=== PATIENT | female | born 1990 | race Caucasian/White ===

== ENCOUNTER 2017-09-22 09:06 | Emergency (ER) | payer OTHER ==
[2017-09-22 09:27] VITALS: BP 115/63
--- NOTE | 2017-09-25 06:58 | UC ---
Throat Pain/Nasal Bobo HPI - HPI Summary HPI Summary: 27 year old female presents with sore throat. - History of Current Complaint Chief Complaint: UCGeneralIllness Stated Complaint: SORE THROAT,FEVER Time Seen by Provider: 09/22/17 09:21 Hx Obtained From: Patient Hx Last Menstrual Period: ~09/15/17 Onset/Duration: Sudden Onset Severity: Moderate Pain Intensity: 6 Pain Scale Used: 0-10 Numeric - Allergies/Home Medications Allergies/Adverse Reactions: Allergies Allergy/AdvReac Type Severity Reaction Status Date / Time Penicillins Allergy Mild swelling Verified 09/22/17 09:23 Bee Venom Allergy Swelling Verified 09/22/17 09:23 micropore tape Allergy Mild Rash Uncoded 09/22/17 09:23 Home Medications: Home Medications Etonogestrel [Nexplanon] 68 mg IMPLANT ONCE 09/22/17 [History Confirmed 09/22/17 ] Venlafaxine EXT RELEASE CAP* [Effexor Xr CAP*] 75 mg PO DAILY 09/22/17 [History Confirmed 09/22/17] PMH/Surg Hx/FS Hx/Imm Hx Previously Healthy: Yes - Surgical History Surgical History: Yes Surgery Procedure, Year, and Place: T&A, ~1996, [facility] [place] - Family History Known Family History: Positive: None, Cardiac Disease, Hypertension, Diabetes Negative: Blood Disorder, Other - EAR INFECTIONS - Social History Alcohol Use: Occasionally Alcohol Amount: once a month - 2-3 drinks Substance Use Type: None Smoking Status (MU): Never Smoked Tobacco - Immunization History Most Recent Influenza Vaccination: September 2017 Most Recent Tetanus Shot: up to date Review of Systems Constitutional: Negative Skin: Negative Eyes: Negative ENT: Sore Throat, Sinus Congestion, Sinus Pain/Tenderness Respiratory: Negative Cardiovascular: Negative Gastrointestinal: Negative Genitourinary: Negative Motor: Negative Neurovascular: Negative Musculoskeletal: Negative, Other: Neurological: Negative Psychological: Negative All Other Systems Reviewed And Are Negative: Yes Physical Exam Triage Information Reviewed: Yes Vital Signs: Initial Vital Signs Temp 37.5 C 09/22/17 09:21 Pulse 110 09/22/17 09:21 Resp 16 09/22/17 09:21 BP 115/63 09/22/17 09:21 Pulse Ox 100 09/22/17 09:21 Vital Signs Reviewed: Yes Eye Exam: Normal ENT: Positive: Pharyngeal erythema, Nasal congestion, Nasal drainage, Tonsillar swelling Dental Exam: Normal Neck exam: Normal Neck: Positive: 1 Respiratory Exam: Normal Cardiovascular Exam: Normal Abdominal Exam: Normal Musculoskeletal Exam: Normal Neurological Exam: Normal Psychological Exam: Normal Skin Exam: Normal Throat Pain/Nasal Course/Dx - Differential Dx/Diagnosis Provider Diagnoses: pharyngitis Discharge - Discharge Plan Condition: Stable Disposition: HOME Prescriptions: Azithromyxin SEVEN (NF) [Z-Seven (Zithromax) 250 mg tabs #6] 2 tab PO .TODAY, THEN 1 DAILY #6 tab LoraTADine TAB(NF) [Claritin 10 MG TAB(NF)] 10 mg PO DAILY #30 tab Magic M W2 Rey/Maal/Nyst/Lido* 5 ml SWISH SPIT QID PRN #120 ml PRN Reason: Pain Patient Education Materials: Pharyngitis (ED) Referrals: See Paez MD [Primary Care Provider] -
== END 2017-09-22 09:56 | disposition home or self-care (01) ==
LOC: UCCORT 09:06
DX: J02.9 Acute pharyngitis, unspecified (principal)
CPT/HCPCS: 87651; 99212; G0463

== ENCOUNTER 2018-04-16 16:31 | Emergency (ER) | payer OTHER ==
--- OUTSIDE RECORDS SUMMARY | 2018-04-16 16:37 | XMS REPORT ---
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 General Asthma Half-brother has asthma General Colon Cancer Paternal had colon cancer in senior years General Lung Cancer Paternal grandfather had lung cancer that caused . General Hypertension Father has hypertension General Mental Illness Maternal aunt is paranoid schizo General Obesity Father has obesity General Stroke Paternal grandmother had stroke General Alzheimer's Disease Paternal grandmother had dementia General Anemia Mother and Maternal Aunt anemic with General Stomach Cancer Paternal grandmother had stomach cancer at end of life. General Chickenpox All immediate family members have had chicken pox. General Cirrhosis Paternal grandfather had cirrhosis General Emphysema Paternal grandfather had General Vertigo Father suffers from vertigo occasionally General Diabetes Father and paternal uncle (father's twin) have diabetes. Paternal grandmother had diabetes late in life. Maternal grandmother is pre-diabetic. 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 Blood Donor Patient is not a blood donor Cigars Never Smoked Cigars ETOH Use 03/15/2018 Occasionally consumes alcohol Smoking 03/15/2018 Patient has never smoked Recreational Drug Use 03/15/2018 Negative For Never Used Drugs Allergies, Adverse Reactions, Alerts Date Description Reaction Status Severity Comments 03/14/2018 Penicillin Swelling of mouth active 03/14/2018 Bee Sting Severe swelling active 03/14/2018 Tape Contact dermatitis, Surgical Tape active Medications Medication Date Status Form Strength Qnty SIG Indications Ordering Provider Nexplanon / Active Implant 68mg Implant Pastor, 0000 JOHNNY Mason Ibuprofen / Active Tablets 800mg As needed Unknown 0000 Multivitamins / Active Capsules 1 a day Unknown Omeprazole 03/15/ Hx Capsules 20mg 30caps 1 by Ramses 2017 - DR fany Weston, 04/06/ every M.D. 2017 day. Venlafaxine HCL / Hx Tablets 75mg Daily Carolyne, 0000 - MD Gwen 2017 Vital Signs Date Vital Result Comment 04/12/2018 Weight 218.00 lb Height 66 inches 5'6" BMI (Body Mass Index) 35.2 kg/m2 BP Systolic 114 mmHg BP Diastolic 72 mmHg Heart Rate 108 /min O2 % BldC Oximetry 98 % Body Temperature 97.3 F Pain Level 0 03/15/2018 Weight 218.12 lb Height 66 inches 5'6" BMI (Body Mass Index) 35.2 kg/m2 BP Systolic 107 mmHg BP Diastolic 75 mmHg Heart Rate 81 /min O2 % BldC Oximetry 99 % room air Body Temperature 99.0 F Cordova Score 15 Neck Circumference in inches 14 Pain Level 0 Results Description No Information Procedures Date CPT Code Description Status 03/15/2018 39851 Fiberoptic Laryngoscopy,Diag. Completed Encounters Type Date Location Provider CPT E/M Dx Office Visit 03/15/2018 3:30p [place] [address] R06.83 G47.9 K21.9 Plan of Care 03/15/2018 - Genet Leiva, NPR06.83 [id number] Sleep disorder, [id number] Gastro-esophageal reflux disease without esophagitisNew Orders: PSG - Sleep StudyNew Orders:PSG - Sleep StudyNew Medication:Omeprazole 20 mg
--- OUTSIDE RECORDS SUMMARY | 2018-04-16 16:37 | XMS REPORT ---
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 See Paez MD Primary Care Physician Unavailable Payers Type Date Identification Numbers Payment Provider Subscriber Commercial Policy Number: [id number] Darinel Reid PayID: [id number] [address] [place] [address] Problems Description No Information Family History Date [...] Boyfriend Sleep Reports continuity disturbances 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 Nexplanon / Active Implant 68mg Implant Pastor, 0000 JOHNNY Mason Ibuprofen / Active Tablets 800mg As needed Unknown 0000 Multivitamins / Active Capsules 1 a day Unknown 0000 Omeprazole 03/15/ Hx Capsules 20mg 30caps 1 by Ramses, 2017 - DR fany Weston, 04/06/ every M.D. 2018 day. Venlafaxine HCL / Hx Tablets 75mg [...] % room air Body Temperature 99.0 F [place] Score 15 Neck Circumference in inches 14 Pain Level 0 Results Description No Information Procedures Date CPT Code Description Status 03/15/2018 86105 Fiberoptic Laryngoscopy,Diag. Completed Encounters Type Date Location Provider CPT E/M Dx Office Visit 04/12/2018 9:00a [place] [address] R06.83 K21.9 Office Visit 03/15/2018 3:30p Main Office Genet Leiva, LEXI 73747 R06.83 G47.9 K21.9 Plan of Care 03/15/2018 - Genet Leiva, NPR06.83 [id number] Sleep disorder, mrririlbzcyD97.9 Gastro-esophageal reflux disease without esophagitisNew Orders: PSG - Sleep StudyNew Orders:PSG - Sleep StudyNew Medication:Omeprazole 20 mg
[2018-04-16 18:03] VITALS: BP 129/73
[2018-04-16] MEDS ORDERED: Acetaminophen TAB* 325 MG PO ONE (18:45)
--- NOTE | 2018-04-16 19:01 | UC ---
Neha Sims Tenzin, scribed for Tamia Murillo MD on 04/16/18 at 1848 . Head Injury HPI - HPI Summary HPI Summary: Pt is a 28 years old female with a history of concussion presenting to the complaining of headache from head injury that happened last night around 20:00. She was packing last night when accidentally a heavy lamp fell on the top of her head. During the onset, she reported that she had an instant GONZALEZ but today it is worse and it is radiating to the other parts of her head. She rates the pain currently at 5/10 in severity. Pt is also complaining of feeling nauseous and foggy this morning. Denies seeing any blood from nose or eyes and no vision changes. No LOC. Pt with h/oo concussions. Last recent concussion history was in October of 2015 with months long symptoms. pt states she has been followed by neurology, [place] for he concussions. She was recenlt treated with Effexor by weaned off last week. Pt states since she has had some dizziness and nausea from withdrawal. Pt unsure if sx today from head injury or withdrawal Pt states spoke to neurology who told could be either. She decided to come get checked out. Pt works for [employer] and reports had a stressful day that may have contributed to her symptoms. pt deniea vision changes. No paresthesias ext x 4. She took a 800 mg ibuprofen and caffeine but it didn't help to relieve her pain. Pt states she is moving into a new house she recently purchased Pt's medications reviewed this visit - History Of Current Complaint Chief Complaint: UCHeadInjury Stated Complaint: HEAD INJURY Time Seen by Provider: 04/16/18 18:31 Hx Obtained From: Patient Hx Last Menstrual Period: NEXPLANON (03/30/18) ?: No Onset/Duration: Sudden Onset, Still Present Severity Initially: Mild Pain Intensity: 5 Pain Scale Used: 0-10 Numeric Aggravating Factor(s): Nothing Alleviating Factor(s): Nothing Associated Signs And Symptoms: Positive: Other - Denies: vision changes, no blood from nose or eyes. - Allergies/Home Medications Allergies/Adverse Reactions: Allergies Allergy/AdvReac Type Severity Reaction Status Date / Time bee venom protein (honey bee) Allergy Severe Swelling Verified 04/16/18 18:04 Penicillins Allergy Severe Swelling Verified 04/16/18 18:04 micropore tape Allergy Mild Rash Uncoded 04/16/18 18:04 Home Medications: Home Medications Ibuprofen TAB* [Advil TAB*] 800 mg PO ONCE PRN 04/16/18 [History Confirmed 04/16] Multivitamin [Multivitamins] 1 each PO DAILY 04/16/18 [History Confirmed ] PMH/Surg Hx/FS Hx/Imm Hx - Additional Past Medical History Additional PMH: POSITIVE: ASTHMA, concussion NEGATIVE: [place], CVA. Previously Healthy: Yes - Surgical History Surgical History: Yes Surgery Procedure, Year, and Place: T&A, ~1996, [facility], [place] - Family History Known Family History: Positive: None, Cardiac Disease, Hypertension, Diabetes Negative: Blood Disorder, Other - EAR INFECTIONS - Social History Occupation: Employed Full-time Lives: With Family Alcohol Use: None Alcohol Amount: once a month - 2-3 drinks Substance Use Type: None Smoking Status (MU): Never Smoked Tobacco - Immunization History Most Recent Influenza Vaccination: September 2017 Most Recent Tetanus Shot: up to date Review of Systems Constitutional: Negative Skin: Negative Eyes: Negative ENT: Negative Respiratory: Negative Cardiovascular: Negative Gastrointestinal: Nausea, Other - foggy Genitourinary: Negative Motor: Negative Neurovascular: Negative Musculoskeletal: Negative Neurological: Headache Psychological: Negative All Other Systems Reviewed And Are Negative: Yes Physical Exam - Summary Physical Exam Summary: Vital Signs Reviewed: Yes A+Ox3, no distress Eyes: Conjunctiva Clear, MAYRA. EOM intact and full ENT: Hearing grossly normal TM x 2 clear, mmoist, uvula midline, no exudate, no erythema Neck: Positive: Supple Respiratory: Positive: No respiratory distress, No accessory muscle use + CTA throughout no w/r Cardiovascular: RRR nl s1, s2 no m/r CBT <2 sec abd soft + BS nt/nd no guarding, no distension Musculoskeletal Exam: RODRIGUEZ x 4 without difficulty Strength Intact, ROM Intact Psychological: Positive: Normal Response To Family Skin: Positive: no rash, no ecchymosis, no edema, no abraison CN 2-12 intact and full + FNF b/l + heel/boo b/l 5/5 abduction, flex/ext elbow, wrist against resistant 5/5 SLE, flex/ext knee, ankle + great toe extension + gross sensation throughout neg rhomberg + heel/toe walking + heel/toe rocking + naming Triage Information Reviewed: Yes Vital Signs: Initial Vital Signs Temp 97.8 F 04/16/18 17:58 Pulse 81 04/16/18 17:58 Resp 16 04/16/18 17:58 BP 129/73 04/16/18 17:58 Pulse Ox 100 04/16/18 17:58 Diagnostics - Radiology BRAIN CT Radiology Interpretation Completed By: Radiologist - IMPRESSION: NO EVIDENCE FOR ACUTE INTRACRANIAL ABNORMALITY. 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/Release Non-Paretic Hand: Both Correctly Best Gaze (Only Horizontal Eye Movement): Normal Visual Field Testing: No Visual Loss Facial Paresis-Pt to Smile & Close Eyes or Grimace Symmetry: Normal/Symmetrical Motor Function - Right Arm: No Drift-Holds 10 Seconds Motor Function - Left Arm: No Drift-Holds 10 Seconds Motor Function - Right Leg: No Drift-Holds 10 Seconds Motor Function - Left Leg: No Drift-Holds 10 Seconds Limb Ataxia-Must be out of Proportion to Weakness Present: Absent Sensory (Use Pinprick to Test Arms/Legs/Trunk/Face): Normal Best Language (Describe Picture, Name Items): No Aphasia Dysarthria (Read Several Words): Normal Extinction and Inattention: No Abnormality Total Score: 0 Head Injury Course/Dx - Course Course Of Treatment: Pt presents with headache and lightheadedness since yesterday. pt was stuck in head by a lamp which fell last night. no LOC. Pt with h/o concussion with post concussion syndrome from previous pt also has been weaning of medication causing some dizziess and nausea. Pt with non cocnerning, non focal exam. Will check CT. If neg, will discharge, work note, rest. eviewed concussion precautions. pt is followed by neurology for concussion. return precautions. pt in agreement with plan - Differential Dx/Diagnosis Provider Diagnoses: closed head injury Discharge - Sign-Out/Discharge Documenting (check all that apply): Discharge/Admit/Transfer - Discharge Plan Condition: Stable Disposition: HOME Patient Education Materials: Concussion (ED), Head Injury (ED) Forms: *Gen. Provider Communication Referrals: See Paez MD [Primary Care Provider] - Additional Instructions: - Stay well hydrated. Drink plenty of non-alcoholic, non-caffinated beverages - Okay to alternate ibuprofen (Advil, Motrin) and tylenol every 3 hours for pain. Take with food. Do NOT take for more than 4-5 days - eat regular, healthy meals - Get plenty of restful sleep contact your doctor to schedule a follow-up appointment. Contact your doctor or return with questions or concerns - Billing Disposition and Condition Condition: STABLE Disposition: Home The documentation as recorded by the Neha navarro Tenzin accurately reflects the service I personally performed and the decisions made by me, Tamia Murillo MD.
--- NOTE | 2018-04-16 19:25 | RAD ---
INDICATION: Head injury. COMPARISON: Comparison is made with a prior study from February 15, 2015. TECHNIQUE: Contiguous axial sections of the brain were obtained from the skull base to the vertex without contrast. FINDINGS: The ventricles, cisterns and sulci are within normal limits. No significant focal abnormality or mass effect is seen. There is no evidence for hemorrhage. No significant focal osseous abnormality is seen. The visualized portion of the paranasal sinuses and mastoid air cells appear clear. IMPRESSION: NO EVIDENCE FOR ACUTE INTRACRANIAL ABNORMALITY.
== END 2018-04-16 19:45 | disposition home or self-care (01) ==
LOC: UCEAST 16:31
DX: S09.90XA Unspecified injury of head, initial encounter (principal); W20.8XXA Other cause of strike by thrown, projected or falling object, initial encounter; Y93.E6 Activity, residential relocation; Y92.009 Unspecified place in unspecified non-institutional (private) residence as the place of occurrence of the external cause; J45.909 Unspecified asthma, uncomplicated; Z87.820 Personal history of traumatic brain injury; Z91.030 Bee allergy status; Z88.0 Allergy status to penicillin; Z91.048 Other nonmedicinal substance allergy status
CPT/HCPCS: 70450; 99212; A9270-GY; G0463

== ENCOUNTER 2018-04-30 10:30 | Emergency (ER) | payer OTHER ==
--- OUTSIDE RECORDS SUMMARY | 2018-04-30 11:05 | XMS REPORT ---
:1990 External Reference #:[id number] Author Organization [facility] Address [address] [place] [address] Phone [phone] Care Team Providers Name Role Phone See Paez MD Primary Care Physician Unavailable Payers Type Date Identification Numbers Payment Provider Subscriber Commercial Policy Number: [id number] [employer] Sarwat Reid PayID: [id number] [address] [place] [address] Workers Compensation Effective: Policy Number: Rosaura Edmonds 2015 [id number] Expires: 2017 PayID: [id number] [address] Onset: 2015 [place] [address] Problems Date Description Provider Status Onset: 08/08/2016 Migraine without aura, not refractory Gwen Barfield MD Active Onset: 11/23/2015 Postconcussion syndrome Gwen Barfield MD Active Family History Date Family Member(s) Problem(s) Comments General Diabetes General Arthritis General Colon Cancer General Stomach Cancer General Stroke General Heart Disease Father Hypertension Father Diabetes Siblings 1 Social History Type Date Description Comments Marital Status Single Lives With Mother And Father 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 Tobacco Never Used Smokeless Tobacco ETOH Use Occasionally consumes alcohol Smoking Patient has never smoked Recreational Drug Use Denies Drug Use Daily Caffeine Does Not Consume Caffeine Exercise Type/Frequency Exercises regularly Allergies, Adverse Reactions, Alerts Date Description Reaction Status Severity Comments 04/23/2014 Penicillin active Medications Medication Date Status Form Strength Qnty SIG Indications Ordering Provider Ibuprofen 10/07/ Active Tablets 800mg 90tab 1 po tid w Pedro M 2015 s food raman Alexander MD pain and swelling Ibuprofen / Active Capsules 200mg as needed Unknown 0000 Nexplanon / Active Implant 68mg Unknown 0000 Multi For Her / Active Capsules once a day Unknown 0000 otc Gabapentin / Active Capsules 300mg 1 by mouth Unknown 0000 three times a day Effexor XR 02/23/ Hx Caps ER 37.5mg 30cap take 1 in F07.81 Gwen 2018 - 24HR s the Am MD Carolyne with 1 2018 75mg cap for 1-2 wks then 75mg daily for 1- 2 wks then 1 cap (37.5mg) daily for 1- 2 wks then stop Effexor XR 12/26/ Hx Caps ER 75mg 60cap 2 by mouth F07.81 Gwen 2016 - 24HR s every day MD Carolyne 2017 Effexor XR 08/08/ Hx Caps ER 37.5mg 60cap 1 in the G43.009 Gwen 2015 - 24HR s morning MD Carolyne 12/26/ for 1 week 2016 then 2 in the morning Amitriptyline 11/23/ Hx Tablets 10mg 30tab take 1 F07.81 Gwen HCL 2016 - s tablet at MD Carolyne 05/30/ bedtime 2016 Lateral J Knee 04/23/ Hx Claudia Moreau, 11/22/ Manan 2016 Nuvaring / Hx Ring 0.12-0.015 3unit insert 1 Unknown 0000 - mg/24HR s ring 08/07/ vaginally 2015 every [address] for 3 weeks, remove, and replace with a new ring after 7 day break for b Tylenol / Hx Tablets 325mg as needed Unknown 0000 - 2015 Multivitamin / Hx Tablets 1 by mouth Unknown Adult 0000 - every day 2016 Vital Signs Date Vital Result Comment 04/25/2018 Height 66 inches 5'6" Weight 219.25 lb Heart Rate 70 /min BP Systolic 104 mmHg BP Diastolic 66 mmHg BMI (Body Mass Index) 35.4 kg/m2 02/23/2018 Height 66 inches 5'6" Weight 215.38 lb Heart Rate 72 /min BP Systolic 128 mmHg BP Diastolic 82 mmHg BMI (Body Mass Index) 34.8 kg/m2 08/25/2017 Height 66 inches 5'6" Weight 205.00 lb Heart Rate 60 /min BP Systolic 104 mmHg BP Diastolic 62 mmHg BMI (Body Mass Index) 33.1 kg/m2 12/26/2016 Height 66 inches 5'6" Weight 180.00 lb Heart Rate 77 /min BP Systolic Sitting 116 mmHg BP Diastolic Sitting 66 mmHg Respiratory Rate 16 /min BMI (Body Mass Index) 29.0 kg/m2 12/09/2016 Height 66 inches 5'6" Weight 180.00 lb BP Systolic 106 mmHg BP Diastolic 62 mmHg BMI (Body Mass Index) 29.0 kg/m2 10/28/2016 Height 66 inches 5'6" Weight 180.00 lb BP Systolic 124 mmHg BP Diastolic 62 mmHg BMI (Body Mass Index) 29.0 kg/m2 10/07/2016 Height 66 inches 5'6" Weight 180.00 lb Heart Rate 83 /min BP Systolic 128 mmHg BP Diastolic 68 mmHg BMI (Body Mass Index) 29.0 kg/m2 08/08/2016 Height 66 inches 5'6" Weight 165.00 lb Heart Rate 100 /min BP Systolic Sitting 126 mmHg BP Diastolic Sitting 80 mmHg Respiratory Rate 14 /min BMI (Body Mass Index) 26.6 kg/m2 04/20/2016 Height 66 inches 5'6" Weight 165.00 lb Heart Rate 88 /min BP Systolic Sitting 126 mmHg BP Diastolic Sitting 86 mmHg Respiratory Rate 14 /min BMI (Body Mass Index) 26.6 kg/m2 01/19/2016 Height 66 inches 5'6" Weight 165.00 lb Heart Rate 78 /min BP Systolic Sitting 104 mmHg BP Diastolic Sitting 68 mmHg Respiratory Rate 17 /min BMI (Body Mass Index) 26.6 kg/m2 11/23/2015 Height 66 inches 5'6" Weight 165.00 lb Heart Rate 60 /min BP Systolic Sitting 114 mmHg BP Diastolic Sitting 74 mmHg Respiratory Rate 14 /min BMI (Body Mass Index) 26.6 kg/m2 04/23/2014 Height 66 inches 5'6" Weight 160.00 lb Heart Rate 76 /min BP Systolic Sitting 124 mmHg BP Diastolic Sitting 76 mmHg BMI (Body Mass Index) 25.8 kg/m2 Results Description No Information Procedures Date CPT Code Description Status 04/23/2014 49502 Rad Exam; Knee Comp Completed Encounters Type Date Location Provider CPT E/M Dx Office Visit 02/23/2018 [facility] [address] F07.81 10:30a Office Visit 12/26/2016 [facility] [place] [address] F07.81 4:00p Of [facility] G43.009 F07.81 Office Visit 12/09/2016 8:30a [place] [address] [id number] Of [facility] [place] Office Visit 10/28/2016 8:30a [place] [address] [id number] Of [facility] [place] Office Visit 10/07/2016 8:45a [place] [address] [id number] Of [facility] AT [place] Office Visit 08/08/2016 3:30p [facility] [place] [address] G43.009 Services Of [facility] F07.81 Office Visit 04/20/2016 4:00p [facility] [place] [address] F07.81 Services Of [facility] F07.81 Office Visit 01/19/2016 4:00p [facility] [place] [address] F07.81 Services Of [facility] Office Visit 11/23/2015 3:00p [facility] [place] [address] F07.81 Services Of [facility] Office Visit 04/23/2014 9:45a [facility] Claudia Moreau [address] 719.44 [phone] Plan of Care Future Appointment(s):07/03/2018 9:30 am - Simeon Barnhart M.D. at [facility]04/25/2018 - Gwen Barfield MDF07.81 Postconcussional syndromeFollow up:: call me in 1 week with an updateRecommendations:I will take you out of work for 1 week and then suggest that you return for half days for 1 week, then full days if everything is going well. Hold off on starting gabapentin for now but we could work with this mediaction if you feel like you want to start one. Get as much rest as you can but gradually increase your activity level, taking breaks if you start to feel worsened headache or nausea. Limit your screen time.
[2018-04-30 11:16] VITALS: BP 104/65
--- NOTE | 2018-04-30 11:27 | UC ---
Skin Complaint HPI - HPI Summary HPI Summary: This is a 28-year-old female presents here with a 3 day history of pruritic and painful right flank rash. No fever or chills. She has had chickenpox. - History of Current Complaint Chief Complaint: UCRash Time Seen by Provider: 04/30/18 11:05 Stated Complaint: RASH ON RIGHT SIDE Hx Obtained From: Patient Hx Last Menstrual Period: IRREGULAR DUE TO NEXPLANON Onset/Duration: Gradual Onset, Lasting Days Timing: Constant Onset Severity: Moderate Pain Intensity: 6 Pain Scale Used: 0-10 Numeric Character: Pruritus, Redness, Raised, Painful Aggravating Factor(s): Nothing Alleviating Factor(s): Nothing Associated Signs & Symptoms: Positive: Rash - Allergy/Home Medications Allergies/Adverse Reactions: Allergies Allergy/AdvReac Type Severity Reaction Status Date / Time bee venom protein (honey bee) Allergy Severe Swelling Verified 04/16/18 18:04 Penicillins Allergy Severe Swelling Verified 04/16/18 18:04 micropore tape Allergy Mild Rash Uncoded 04/16/18 18:04 Home Medications: Home Medications Hydrocortisone Acetate [Hydrocortisone] 1 each TOPICAL Q6H 04/30/18 [History Confirmed 04/30/18] Review of Systems Constitutional: Negative Skin: Rash Eyes: Negative ENT: Negative Respiratory: Negative Cardiovascular: Negative Gastrointestinal: Negative Genitourinary: Negative Motor: Negative Neurovascular: Negative Musculoskeletal: Negative Neurological: Negative Psychological: Negative Is Patient Immunocompromised?: No All Other Systems Reviewed And Are Negative: Yes PMH/Surg Hx/FS Hx/Imm Hx Previously Healthy: Yes - Surgical History Surgical History: Yes Surgery Procedure, Year, and Place: T&A, ~1996, [facility], WISDOM TEETH - Family History Known Family History: Positive: Cardiac Disease, Hypertension, Diabetes Negative: Blood Disorder, Other - EAR INFECTIONS - Social History Alcohol Use: Rare Alcohol Amount: once a month - 2-3 drinks Substance Use Type: None Smoking Status (MU): Never Smoked Tobacco - Immunization History Most Recent Influenza Vaccination: September 2017 Most Recent Tetanus Shot: up to date Physical Exam Triage Information Reviewed: Yes Appearance: Well-Appearing, No Pain Distress, Well-Nourished Vital Signs: Initial Vital Signs Temp 98.0 F 04/30/18 11:10 Pulse 75 04/30/18 11:10 Resp 17 04/30/18 11:10 BP 104/65 04/30/18 11:10 Pulse Ox 100 04/30/18 11:10 Vital Signs Reviewed: Yes Eyes: Positive: Conjunctiva Clear ENT: Positive: Hearing grossly normal. Negative: Nasal congestion, Nasal drainage, Trismus, Muffled voice, Hoarse voice Neck: Positive: Nontender, No Lymphadenopathy Respiratory: Positive: Lungs clear, Normal breath sounds, No respiratory distress Cardiovascular: Positive: RRR, No Murmur Musculoskeletal: Positive: ROM Intact, No Edema Neurological: Positive: Alert Psychological Exam: Normal Skin Exam: Other - cluster of vesicles right flank (T-10 dermatome) Course/Dx - Diagnoses Provider Diagnoses: shingles Discharge - Sign-Out/Discharge Documenting (check all that apply): Discharge/Admit/Transfer - Discharge Plan Condition: Stable Disposition: HOME Prescriptions: Famciclovir(NF) [Famvir(NF)] 500 mg PO TID #21 tab Patient Education Materials: [place]anes (ED) Referrals: See Paez MD [Primary Care Provider] - If Needed Additional Instructions: recheck for new or worsening symptoms - Billing Disposition and Condition Condition: STABLE Disposition: Home
== END 2018-04-30 11:32 | disposition home or self-care (01) ==
LOC: UCCORT 10:30
DX: B02.9 Zoster without complications (principal); Z88.0 Allergy status to penicillin
CPT/HCPCS: 99212; G0463

== ENCOUNTER 2018-12-27 17:23 | Emergency (ER) | payer OTHER ==
[2018-12-27 17:51] VITALS: BP 116/68
--- NOTE | 2018-12-27 18:27 | UC ---
Throat Pain/Nasal Bobo HPI - HPI Summary HPI Summary: 28-year-old female presents with one week of nasal congestion, post-nasal drip, and sinus pressure. States over last 2-3 days she has also developed hoarseness , bilateral ear fullness, mild sore throat, and a nonproductive cough. Denies fever, chills, dysphagia, chest pain, shortness of breath, abdominal pain, nausea, vomiting, or diarrhea. - History of Current Complaint Chief Complaint: UCRespiratory Stated Complaint: SINUSES Time Seen by Provider: 12/27/18 18:02 Hx Obtained From: Patient Hx Last Menstrual Period: 12/27/18 Pain Intensity: 5 - Allergies/Home Medications Allergies/Adverse Reactions: Allergies Allergy/AdvReac Type Severity Reaction Status Date / Time bee venom protein (honey bee) Allergy Severe Swelling Verified 12/27/18 17:51 Penicillins Allergy Severe Swelling Verified 12/27/18 17:51 micropore tape Allergy Mild Rash Uncoded 12/27/18 17:51 Home Medications: Home Medications Oral Contraceptives DAILY 12/27/18 [History] PMH/Surg Hx/FS Hx/Imm Hx Previously Healthy: Yes - Denies significant PMH - Surgical History Surgical History: Yes Surgery Procedure, Year, and Place: T&A, ~1996, [facility], [facility]ISDOM [facility]ETH - Family History Known Family History: Positive: Cardiac Disease, Hypertension, Diabetes - Social History Occupation: Employed Full-time Lives: Alone Alcohol Use: Rare Alcohol Amount: once a month - 2-3 drinks Substance Use Type: None Smoking Status (MU): Never Smoked Tobacco - Immunization History Most Recent Influenza Vaccination: September 2017 Most Recent Tetanus Shot: up to date Review of Systems All Other Systems Reviewed And Are Negative: Yes Constitutional: Negative: Fever, Chills Skin: Negative: Rash Eyes: Negative: Drainage, Eye Redness ENT: Positive: Sore Throat, Ear Ache, Nasal Discharge, Sinus Congestion, Sinus Pain/Tenderness Respiratory: Positive: Cough. Negative: Shortness Of Breath Cardiovascular: Negative: Palpitations, Chest Pain Gastrointestinal: Negative: Abdominal Pain, Vomiting, Diarrhea, Nausea Genitourinary: Positive: Negative Musculoskeletal: Positive: Negative Neurological: Positive: Negative Is Patient Immunocompromised?: No Physical Exam - Summary Physical Exam Summary: GENERAL APPEARANCE: Well developed, well nourished, alert and cooperative, and appears to be in no acute distress. EYES: Conjunctiva clear. No drainage. PERRL, EOM intact. Vision is grossly intact. EARS: External auditory canals and tympanic membranes clear, hearing grossly intact. NOSE: Mild-moderate nasal congestion. No nasal discharge. THROAT: Mild pharyngeal erythema with post-nasal drip. Tonsils surgically absent. Uvula midline. Oral cavity normal. Teeth and gingiva in good general condition. NECK: Neck supple, non-tender without lymphadenopathy. CARDIAC: Normal S1 and S2. No S3, S4 or murmurs. Rhythm is regular. There is no peripheral edema, cyanosis or pallor. Extremities are warm and well perfused. Capillary refill is less than 2 seconds. Peripheral pulses intact. LUNGS: Clear to auscultation without rales, rhonchi, wheezing or diminished breath sounds. Dry, non-productive cough ABDOMEN: Positive bowel sounds. Soft, nondistended, nontender. No guarding or rebound. No masses or hepatosplenomegally. MUSKULOSKELETAL: ROM intact to all extremities. No joint erythema or tenderness. Normal muscular development. Normal gait. SKIN: Skin normal color, texture and turgor with no lesions or eruptions. Triage Information Reviewed: Yes Vital Signs: Initial Vital Signs Temp 97.7 F 12/27/18 17:46 Pulse 93 12/27/18 17:46 Resp 16 12/27/18 17:46 BP 116/68 12/27/18 17:46 Pulse Ox 98 12/27/18 17:46 Vital Signs Reviewed: Yes Throat Pain/Nasal Course/Dx - Course Course Of Treatment: 28-year-old female presents with one week of nasal congestion, post-nasal drip, and sinus pressure. States over last 2-3 days she has also developed hoarseness, bilateral ear fullness, mild sore throat, and a nonproductive cough. Denies fever, chills, dysphagia, chest pain, shortness of breath, abdominal pain, nausea, vomiting, or diarrhea. Afebrile. Vital signs stable. Exam reveals an adult female in no acute distress with mild to moderate nasal congestion, maxillary sinus tenderness, mild pharyngeal erythema with postnasal drip, no cervical lymphadenopathy, clear bilateral breath sounds, a dry nonproductive cough. Recommending symptomatic treatment for an acute sinusitis. I will also provide her with a prescription for Tessalon Perles one Every 8 hours as needed for her cough. She is to follow-up with the primary care provider in 7 days if symptoms do not improve. Anticipatory guidance and warning symptoms were reviewed with the patient. Verbalizes understanding and agrees with plan of care. - Differential Dx/Diagnosis Differential Diagnosis/HQI/PQRI: Laryngitis, Otitis Media, Pharyngitis, Sinusitis, Tonsillitis, URI Provider Diagnosis: Acute sinusitis Discharge - Sign-Out/Discharge Documenting (check all that apply): Patient Departure All imaging exams completed and their final reports reviewed: No Studies - Discharge Plan Condition: Stable Disposition: HOME Prescriptions: Benzonatate CAP* [Tessalon 100 MG CAP*] 100 mg PO TID PRN #30 cap PRN Reason: Cough Fluticasone NASAL SPRAY 50MCG* [Flonase NASAL SPRAY 50MCG*] 2 spray BOTH NARES DAILY #1 btl Patient Education Materials: Sinusitis (ED) Referrals: See Paez MD [Primary Care Provider] - 7 Days (If no improvement in symptoms.) Additional Instructions: Your history and exam are consistent with a sinus infection. Sinus infections without fever are most often caused by a viral infection. Viral infections do not respond to antibiotics and are limited to the treatment of symptoms. Drink plenty of fluids to avoid dehydration especially if you are running any fever. Use a saline rinse kit such as Neti Pot or NeilMed at least twice a day to help thin secretions and promote drainage of the sinuses. Use fluticasone (Flonase) nasal spray 2 sprays each nostril once daily. Use an over the counter decongestant such as Sudafed according to directions to help with congestion. Take over the counter acetaminophen (Tylenol) or ibuprofen (Advil, Motrin) according to directions as needed for pain or fever. I have prescribed you Tessalon Perles 1 cap every 8 hours as needed for cough. Follow up with your primary care provider in 7 days if symptoms persist. Seek immediate medical attention in the emergency room if you have fever greater than 100.5 F despite taking acetaminophen or ibuprofen, have chest pain , difficulty breathing, are unable to swallow, or have any worsening of symptoms. - Billing Disposition and Condition Condition: STABLE Disposition: Home
== END 2018-12-27 18:35 | disposition home or self-care (01) ==
LOC: UCCORT 17:23
DX: J01.90 Acute sinusitis, unspecified (principal); Z91.030 Bee allergy status; Z88.0 Allergy status to penicillin; Z91.09 Other allergy status, other than to drugs and biological substances
CPT/HCPCS: 99212; G0463

== ENCOUNTER 2019-05-29 13:38 | Emergency (ER) | payer OTHER ==
[2019-05-29 14:19] VITALS: BP 133/64
--- NOTE | 2019-05-29 15:18 | UC ---
Throat Pain/Nasal Bobo HPI - HPI Summary HPI Summary: Pt presents with c/o sore throat and left 3rd toe swelling and tenderness. She has had a ST X 2 days and noticed green/white exudate on left tonsil. Pt also c/ o left 3rd toe swelling and tenderness along lateral side of nailbed. - History of Current Complaint Chief Complaint: UCRespiratory Stated Complaint: SORE THROAT Time Seen by Provider: 05/29/19 15:02 Hx Obtained From: Patient Hx Last Menstrual Period: 05/21/19 ?: No Onset/Duration: Sudden Onset, Lasting Days, Still Present Severity: Moderate Pain Intensity: 5 Associated Signs & Symptoms: Positive: Dysphagia - Epiglottits Risk Factors Epiglottis Risk Factors: Sudden Onset - Allergies/Home Medications Allergies/Adverse Reactions: Allergies Allergy/AdvReac Type Severity Reaction Status Date / Time bee venom protein (honey bee) Allergy Severe Swelling Verified 05/29/19 14:13 Penicillins Allergy Severe Swelling Verified 05/29/19 14:13 micropore tape Allergy Mild Rash Uncoded 05/29/19 14:13 Home Medications: Home Medications diphenhydrAMINE HCl [Benadryl Allergy 25 MG CAP] 25 mg PO ONCE PRN 05/29/19 [ History Confirmed 05/29/19] PMH/Surg Hx/FS Hx/Imm Hx Previously Healthy: Yes - Surgical History Surgical History: Yes Surgery Procedure, Year, and Place: T&A, ~1996, [facility], [facility] - Family History Known Family History: Positive: None, Cardiac Disease, Hypertension, Diabetes Negative: Blood Disorder, Other - EAR INFECTIONS - Social History Occupation: Employed Full-time Lives: With Family Alcohol Use: Rare Alcohol Amount: once a month - 2-3 drinks Substance Use Type: None Smoking Status (MU): Never Smoked Tobacco Have You Smoked in the Last Year: No - Immunization History Most Recent Influenza Vaccination: September 2017 Most Recent Tetanus Shot: up to date Vaccination Up to Date: Yes Review of Systems All Other Systems Reviewed And Are Negative: Yes Constitutional: Positive: Chills, Fatigue Skin: Positive: Negative ENT: Positive: Sore Throat Respiratory: Positive: Negative Cardiovascular: Positive: Negative Gastrointestinal: Positive: Negative Genitourinary: Positive: Negative Motor: Positive: Negative Neurovascular: Positive: Negative Musculoskeletal: Positive: Negative Neurological: Positive: Negative Psychological: Positive: Negative Is Patient Immunocompromised?: No Physical Exam Triage Information Reviewed: Yes Appearance: Well-Appearing Vital Signs: Initial Vital Signs Temp 99 F 05/29/19 14:14 Pulse 96 05/29/19 14:14 Resp 16 05/29/19 14:14 BP 133/64 05/29/19 14:14 Pulse Ox 100 05/29/19 14:14 Vital Signs Reviewed: Yes Eye Exam: Normal ENT: Positive: Tonsillar swelling - left, Tonsillar exudate - left Dental Exam: Normal Neck exam: Normal Respiratory Exam: Normal Cardiovascular Exam: Normal Musculoskeletal: Positive: Edema @ - slight swelling along lateral nailbed of left 3rd toe Neurological Exam: Normal Psychological Exam: Normal Skin Exam: Other - slight swelling along lateral nailbed of left 3rd toe, mild erythema Throat Pain/Nasal Course/Dx - Differential Dx/Diagnosis Differential Diagnosis/HQI/PQRI: Tonsillitis Provider Diagnosis: Tonsillitis, Ingrown nail of third toe of left foot Discharge - Sign-Out/Discharge Documenting (check all that apply): Patient Departure All imaging exams completed and their final reports reviewed: No Studies - Discharge Plan Condition: Stable Disposition: HOME Prescriptions: DOXYcycline CAP(*) [DOXYcycline 100MG CAP(*)] 100 mg PO Q12H #20 cap Patient Education Materials: Ingrown Nail (ED), Tonsillitis (ED) Referrals: See Paez MD [Primary Care Provider] - If Needed - Billing Disposition and Condition Condition: STABLE Disposition: Home - Attestation Statements Provider Attestation: Per institutional requirements, I have reviewed the chart, however, I was not consulted specifically or made aware of this patient by the midlevel provider. I did not personally evaluate, interact with , or disposition this patient.
== END 2019-05-29 15:31 | disposition home or self-care (01) ==
LOC: UCCORT 13:38
DX: J03.90 Acute tonsillitis, unspecified (principal); L60.0 Ingrowing nail; Z88.0 Allergy status to penicillin
CPT/HCPCS: 87651; 99212; G0463